=== PATIENT | male | born 1950 | race Caucasian/White ===

== ENCOUNTER → 2021-12-04 | Outpatient (CLI) | payer MEDICARE, SELFPAY ==
--- NOTE | 2021-12-03 | LES_PTH ---
PATIENT: TRUDY CALABRESE LOC: [facility] U#:[id number] AGE/SX: 71/M ROOM: RE12/04/[address]: Dr. Darryl Wu MD : [id number] BED: DIS: 12/04/2021 SPEC #: [id number] RECD: 12/04/21 12:24 STATUS: RANJANA LAKEISHA #: [id number] FANI: 12/03/21 00:[address]: Darryl Wu DEPT: SURGICAL PATHOLOGY RECD BY: Dom Mahoney Tissues: Skin of eyelid, NOS Procedures: Surgery Specimen Level IV HEADER OPERATION: LLL lesion excision PRE-OP DIAGNOSIS: Increased size of LLL lesion TISSUE SUBMITTED: LLL lesion MICROSCOPIC DIAGNOSIS LLL lesion, excision: Seborrheic keratosis. KRYSTEN:po 12/05/2021 MICROSCOPIC DESCRIPTION Slides are reviewed. GROSS DESCRIPTION Received in fixative is one container labeled with the patient's name and designated LLL. The specimen consists of a eldridge-white skin ellipse measuring 0.7 x 0.5 x 0.1 cm. This piece is inked and bisected. Also present in the container is a second piece of eldridge-white skin measuring 0.5 x 0.1 x 0.1 cm. The entire specimen is submitted in one cassette. / SJ:rg 12/04/2021 TC:1 CPT: 64012
== END | disposition home or self-care (01) ==
PROVIDERS: Referring Provider Ophthalmology; Visit Provider Ophthalmology
DX: L82.1 Other seborrheic keratosis (principal)
CPT/HCPCS: 88305

== ENCOUNTER → 2022-10-18 | Outpatient (CLI) | payer MEDICARE, SELFPAY ==
--- NOTE | 2022-10-18 08:54 | CDU_ITS ---
Reason For Study: syncope Rt. Velocities/BP Lt. Velocities/BP Prox CCA 81.5/15.4 cm/sec. Prox CCA 107.2/26.2 cm/sec. Mid CCA 82.8/17.9 cm/sec. Mid CCA 115.6/27.9 cm/sec. Dist CCA 115.8/28.6 cm/sec. Dist CCA 85.1/22.5 cm/sec. Prox ICA 76.2/20.1 cm/sec. Prox ICA 86.3/20.0 cm/sec. Mid ICA 60.8/22.3 cm/sec. Mid ICA 71.6/28.6 cm/sec. Dist ICA 79.5/32.2 cm/sec. Dist ICA 79.0/37.2 cm/sec. Rt. ICA/CCA = 1.0. Lt. ICA/CCA = .7. Prox ECA 82.8/11.3 cm/sec. Prox ECA 79.0/11.4 cm/sec. Rt. Vert. 53.1/14.6 cm/sec. Lt. Vert. 55.6/16.3 cm/sec. Right Extracranial There is intimal thickening but no significant atherosclerotic plaque noted in the right common carotid artery. There is heterogeneous, irregular atherosclerotic plaque noted in the right internal carotid artery. There is intimal thickening but no significant atherosclerotic plaque noted in the right external carotid artery. Antegrade flow is noted in the right vertebral artery. Left Extracranial There is intimal thickening but no significant atherosclerotic plaque noted in the left common carotid artery. There is heterogeneous, irregular atherosclerotic plaque noted in the left internal carotid artery. There is intimal thickening but no significant atherosclerotic plaque noted in the left external carotid artery. Antegrade flow is noted in the left vertebral artery. Procedure Carotid Duplex [id number]. This is a Carotid Duplex examination using B-mode, color flow and specral Doppler. The exam was diagnostic. Exam performed in department. VL/Carotid Duplex Ultrasound Interpretation Summary Heterogenous plaque at the proximal right internal carotid artery with less patricia n 50% stenosis Less than 50% stenosis right external carotid artery Heterogenous plaque at the proximal left internal carotid artery with less than 50% stenosis Less than 50% stenosis left external carotid artery Patent and antegrade bilateral vertebrals Ordering Physician: Stefan Wilcox Performed By: Omero Cano RVT
== END | disposition home or self-care (01) ==
LOC: CVS 08:52
PROVIDERS: PCP Family Medicine; Referring Provider Family Medicine; Visit Provider Family Medicine
DX: R55 Syncope and collapse (principal)
CPT/HCPCS: 93880

== ENCOUNTER → 2022-10-29 | Outpatient (CLI) | payer MEDICARE, SELFPAY | END | disposition home or self-care (01) | PROVIDERS: PCP Family Medicine; Referring Provider Family Medicine; Visit Provider Family Medicine | DX: R55 Syncope and collapse (principal) | CPT/HCPCS: 93225; 93226 ==

== ENCOUNTER → 2023-01-07 | Outpatient (CLI) | payer MEDICARE, SELFPAY ==
--- NOTE | 2023-01-07 06:29 | ECHOD_ITS ---
Reason For Study: ABN EKG Procedure This was a 2D Doppler, Color Flow transthoracic echocardiogram. Exam performed in department. Left Ventricle Normal LV size. Left ventricular systolic function is normal. Stage 1 diastolic dysfunction. The left ventricular ejection fraction is 60 %. No regional wall motion abnormalities noted. Right Ventricle Normal RV size. Normal systolic function. Atria Normal left atrium. Normal right atrium. Mitral Valve Normal mitral valve. Tricuspid Valve Normal tricuspid valve. Aortic Valve Trisinus/trileaflet aortic valve. Pulmonic Valve Normal pulmonic valve. Great Vessels Normal aortic root. The pulmonary artery is normal size. Normal inferior vena cava. Pericardium/Pleural No pericardial effusion. MMode/2D Measurements & Calculations LVIDd: 5.0 cm IVSd: 0.95 cm LAV(MOD-bp): 60.4 ml LVIDs: 3.7 cm LVPWd: 1.0 cm LAV(MOD-bp) Indexed: 27.1 ml/m2 FS: 26.4 % LAV(MOD-sp2): 61.4 ml LAV(MOD-sp4): 51.8 ml SV(MOD-sp4): 69.7 ml SV(sp4-el): 75.8 ml LVAd ap4: 35.9 cm2 LVLd ap4: 8.9 cm EDV(MOD-sp4): 116.2 ml EDV(sp4-el): 123.2 ml LVAs ap4: 20.9 cm2 LVLs ap4: 7.8 cm ESV(MOD-sp4): 46.6 ml ESV(sp4-el): 47.4 ml EF(MOD-sp4): 59.9 % EF(sp4-el): 61.5 % LA A4 area: 18.2 cm2 LA dimension(2D): 3.7 cm RA A4 area: 16.6 cm2 TAPSE: 2.0 cm Time Measurements MV dec time: 0.16 sec Doppler Measurements & Calculations MV E max jeremy: 54.1 cm/sec Lat Peak E' Jeremy: 11.4 cm/sec Med Peak E' Jeremy: 7.5 cm/sec MV A max jeremy: 60.2 cm/sec E/E' lat: 4.7 E/E' med: 7.2 MV E/A: 0.90 MV V2 max: 70.8 cm/sec Ao V2 max: 128.1 cm/sec MV max P.0 mmHg MV dec slope: 346.2 cm/sec2 Ao max P.6 mmHg MV V2 mean: 47.3 cm/sec Ao V2 mean: 90.4 cm/sec MV mean P.00 mmHg Ao mean P.7 mmHg MV V2 VTI: 18.3 cm Ao V2 VTI: 29.6 cm AV (velocity ratio): 0.73 LV V1 max: 102.0 cm/sec PA V2 max: 115.3 cm/sec LV V1 max P.2 mmHg PA V2 mean: 83.3 cm/sec LV V1 mean P.4 mmHg LV V1 mean: 72.9 cm/sec LV V1 VTI: 21.6 cm ECHO/Echo Complete Interpretation Summary Normal LV size. Left ventricular systolic function is normal. Stage 1 diastolic dysfunction. The left ventricular ejection fraction is 60 %. Ordering Physician: Dwayne Kessler Referring Physician: Dwayne Kessler Performed By: Thi Mcgee RCS
--- NOTE | 2023-01-07 14:01 | STRESSREP_ITS ---
Stress Test Report Exercise myocardial perfusion stress test. 72-year-old man with a history of syncope Stress protocol: Resting EKG demonstrates normal sinus rhythm with a rate of 56 bpm resting blood pressure is 118/70 mmHg. The patient exercised according to the regular Victor M protocol for a total duration of 11 minutes attaining a maximum heart rate of 14 2 bpm which was 97% of maximum predicted heart rate; the maximum workload was 13.7 metabolic equivalents. At rest there were no ST or T wave changes noted to suggest ischemia and at peak exercise upsloping ST changes only were noted which did not meet the criteria for ischemia. No clinical angina was noted the test was terminated due to the target heart rate being achieved/fatigue. The peak blood pressure was 156/66 mmHg. Rate-pressure product was 21,300. Myocardial perfusion protocol. 15.0 mCi of technetium 99m sestamibi was injected at rest. The patient exercised according to regular Victor M protocol for total duration of 11 minutes and at peak exercise 45 mCi of technetium 99m sestamibi was injected stress images were obtained stress and rest images were reconstructed in comparing the short axis vertical long and horizontal long axis. Gated images were also obtained. Perfusion SPECT analysis: Review of the stress images demonstrate normal uptake of tracer noted in all areas of the myocardium. The resting images similarly demonstrate normal uptake of tracer noted in all areas of the myocardium. No areas of reversibility are noted to suggest ischemia no previous infarct was noted. Gated SPECT analysis: The gated ejection fraction is 58%. Conclusion: Normal exercise myocardial perfusion stress test at a high workload Preserved ejection fraction.
== END | disposition home or self-care (01) ==
LOC: CVS 06:28
PROVIDERS: PCP Family Medicine; Referring Provider Internal Medicine Cardiovascular Disease; Visit Provider Internal Medicine Cardiovascular Disease
DX: R55 Syncope and collapse (principal); R94.31 Abnormal electrocardiogram [ECG] [EKG]
CPT/HCPCS: 78452; 93017; 93306; A9500; A4216

== ENCOUNTER → 2023-05-08 | Outpatient (CLI) | payer MEDICARE, SELFPAY ==
[2023-05-08 15:44] LABS: Absolute Neutrophil Count 2.7 X10^3/uL (2.0-7.7); Basophil# 0.03 X10^3/uL; Basophil% 0.7 % (0-1); Eosinophil# 0.03 X10^3/uL; Eosinophils% 0.7 % (0-5); Hematocrit 39.3 % (40-54); Hemoglobin 13.2 g/dL (13.0-16.5); Lymphocyte % 24.2 % (19-41); Mean Corp Hgb Conc 33.6 g/dL (32-36); Mean Corpuscular Hgb 30.4 pg (27.0-32.0); Mean Corpuscular Volume 90.6 fL (80-94); Mean Platelet Vol. 11.1 fl (6.2-12.0); Monocyte# 0.41 X10^3/uL; Monocyte% 9.9 % (0-10); NRBC Flagged by Analyzer 0 % (0-5); Neutrophil # 2.66 X10^3/uL (2.7-7.7); Neutrophil % 64.3 % (47-70); Platelet Count 205 K/mm3 (150-450); RBC Distribution Width CV 12.8 % (11.6-14.6); RBC Distribution Width SD 42.4 fl (35.1-43.9); Red Blood Count 4.34 M/mm3 (4.6-6.2); White Blood Count 4.1 K/mm3 (4.4-11.0)
[2023-05-08 16:15] LABS: Vitamin D,25 Hydroxy 52.3 ng/mL
[2023-05-08 16:27] LABS: Hemoglobin A1c 6.1 % (3.8-5.6)
[2023-05-08 16:29] LABS: ALB/GLOB Ratio 1.2 RATIO (0.9-2.4); AST(SGOT) 15 U/L (15-37); Alanine Aminotransfer ALT/SGPT 31 U/L (16-61); Alkaline Phosphatase 84 U/L (45-117); Anion Gap 0 (5-15); BUN 21 mg/dL (7-18); BUN/Creat Ratio 25.9 RATIO (10-20); Calcium,Total 9.3 mg/dL (8.5-10.1); Chloride 108 mmol/L (98-107); Cholesterol 157 mg/dL (200); Creatinine, Serum 0.81 mg/dL (0.70-1.30); EST Glomerular Filtration Rate 99 mL/min (>60); Est Glom Filt Rate - Afr Amer 119 mL/min (>60); Globulin 3.4 g/dL (2.2-4.2); Glucose 112 mg/dL (74-106); High Density Lipoprotein 46 mg/dL; PSA,Total- Diagnostic 4.71 ng/mL (0.0-4.0); Potassium 4.7 mmol/L (3.5-5.1); Protein, Total 7.4 g/dL (6.4-8.2); Sodium Level 138 mmol/L (136-145); Thyroid Stim Hormone (TSH) 1.78 uIU/mL (0.358-3.74); Triglycerides 121 mg/dL; Very Low Density Lipoprotein 24 mg/dL (5-40)
== END | disposition home or self-care (01) ==
LOC: BIMLAB 14:17
PROVIDERS: PCP Internal Medicine; Referring Provider Internal Medicine; Visit Provider Internal Medicine
DX: R73.03 Prediabetes (principal); N40.0 Benign prostatic hyperplasia without lower urinary tract symptoms; E78.00 Pure hypercholesterolemia, unspecified; E03.9 Hypothyroidism, unspecified; E55.9 Vitamin D deficiency, unspecified
CPT/HCPCS: 36415; 80053; 80061; 82306; 83036; 84153; 84443; 85025

== ENCOUNTER → 2023-07-24 | Outpatient (CLI) | payer MEDICARE, SELFPAY | END | disposition home or self-care (01) | LOC: PSN 07:29 | PROVIDERS: PCP Internal Medicine; Referring Provider Nurse Practitioner Gerontology; Visit Provider Nurse Practitioner Gerontology | DX: R55 Syncope and collapse (principal) | CPT/HCPCS: 93225; 93226 ==

== ENCOUNTER → 2024-06-01 | Outpatient (CLI) | payer MEDICARE, SELFPAY ==
[2024-06-01 12:44] LABS: Absolute Neutrophil Count 2.7 X10^3/uL (2.0-7.7); Basophil# 0.03 X10^3/uL; Basophil% 0.7 % (0-1); Eosinophil# 0.04 X10^3/uL; Hematocrit 39.7 % (40-54); Hemoglobin 13.4 g/dL (13.0-16.5); Lymphocyte % 24.4 % (19-41); Mean Corp Hgb Conc 33.8 g/dL (32-36); Mean Corpuscular Hgb 31.1 pg (27.0-32.0); Mean Corpuscular Volume 92.1 fL (80-94); Mean Platelet Vol. 12.4 fl (6.2-12.0); Monocyte# 0.37 X10^3/uL; NRBC Flagged by Analyzer 0 % (0-5); Neutrophil # 2.65 X10^3/uL (2.7-7.7); Neutrophil % 64.9 % (47-70); Platelet Count 203 K/mm3 (150-450); RBC Distribution Width CV 12.9 % (11.6-14.6); RBC Distribution Width SD 43.8 fl (35.1-43.9); Red Blood Count 4.31 M/mm3 (4.6-6.2); White Blood Count 4.1 K/mm3 (4.4-11.0)
[2024-06-01 23:30] LABS: Cholesterol 179 mg/dL (<=200); High Density Lipoprotein 44 mg/dL; Low Density Lipoprotein Calc. 111 mg/dL; Triglycerides 121 mg/dL; Very Low Density Lipoprotein 24 mg/dL (5-40); cholesterol:hdl ratio screen 4.08
[2024-06-01 23:41] LABS: ALB/GLOB Ratio 1.6 RATIO (0.9-2.4); AST(SGOT) 16 U/L (<=37); Alanine Aminotransfer ALT/SGPT 17 U/L (<=46); Albumin, Serum 4.4 g/dL (3.4-4.8); Alkaline Phosphatase 82 U/L (40-129); Anion Gap 10 (5-15); BUN 20 mg/dL (4-19); BUN/Creat Ratio 24.4 RATIO (10-20); Calcium,Total 9.5 mg/dL (7.6-11.0); Carbon Dioxide 24.6 mmol/L (21.0-32.0); Chloride 104 mmol/L (98-108); Creatinine, Serum 0.81 mg/dL (0.70-1.20); EST Glomerular Filtration Rate 92 (>60); Globulin 2.7 g/dL (2.2-4.2); Glucose 122 mg/dL (70-99); Potassium 4.7 mmol/L (3.3-5.1); Protein, Total 7.1 g/dL (5.9-8.4); Sodium Level 139 mmol/L (133-145); Total Bilirubin 0.38 mg/dL (0.00-1.30)
[2024-06-02 12:22] LABS: Hemoglobin A1c 5.9 % (<=5.6)
== END | disposition home or self-care (01) ==
LOC: BIMLAB 08:15
PROVIDERS: PCP Internal Medicine; Referring Provider Internal Medicine; Visit Provider Internal Medicine
DX: E78.1 Pure hyperglyceridemia (principal); N42.9 Disorder of prostate, unspecified; R73.03 Prediabetes; E03.9 Hypothyroidism, unspecified
CPT/HCPCS: 36415; 80053; 80061; 83036; 84153; 84443; 85025

== ENCOUNTER → 2024-11-19 | Outpatient (CLI) | payer MEDICARE, SELFPAY ==
[2024-11-19 12:58] LABS: PSA,Total- Diagnostic 5.72 ng/mL (0.00-4.00)
== END | disposition home or self-care (01) ==
LOC: BIMLAB 08:56
PROVIDERS: PCP Internal Medicine
DX: R97.20 Elevated prostate specific antigen [PSA] (principal)
CPT/HCPCS: 36415; 84153